=== PATIENT | male | born 1995 | race Caucasian/White ===

== ENCOUNTER 2019-07-28 19:23 | Emergency (ER) | payer SELFPAY ==
[~2019-07-28] VITALS: Ht 172.7 cm; Wt 89.8 kg
[2019-07-28 19:50] VITALS: Ht 172.7 cm; Wt 89.8 kg
[2019-07-29 00:14] VITALS: BP 133/84
== END 2019-07-29 00:14 | disposition home or self-care (01) ==
LOC: ED 19:23
DX: R51 Headache (principal); R11.0 Nausea

== ENCOUNTER 2019-08-03 22:02 | Emergency (ER) | payer SELFPAY ==
[~2019-08-03] VITALS: Ht 180.3 cm; Wt 91.6 kg
[2019-08-03 22:14] VITALS: Ht 180.3 cm; Wt 91.6 kg
[2019-08-04 01:30] VITALS: BP 129/78
== END 2019-08-04 01:30 | disposition home or self-care (01) ==
LOC: ED 22:02
DX: R51 Headache (principal)
CPT/HCPCS: J1885